=== PATIENT | male | born 1955 | race Caucasian/White ===

== ENCOUNTER 2025-03-25 07:14 | Inpatient (IN) | payer MEDICARE, BC ==
[~2025-03-25] VITALS: Ht 188 cm; Wt 106.6 kg
[2025-03-25] MEDS ORDERED: FENTANYL PF 250MCG/5ML AMPUL ONE (07:25)
[2025-03-25] MEDS ORDERED: ROCURONIUM BROMIDE 50 MG/5 ML ONE (07:26)
[2025-03-25] MEDS ORDERED: LIDOCAINE 2%-EPI 1:100,000 30 ML VIAL ONE (07:42)
[2025-03-25] MEDS ORDERED: dexaMETHasone SOD PHOSPHATE 2 ML ONE (07:42)
[2025-03-25] MEDS ORDERED: VANCOMYCIN 1 GM VIAL ONE (07:42)
[2025-03-25] MEDS ORDERED: OXYMETAZOLINE HCL NASAL SPRAY 30 ML BOTTLE NS ONE (07:54)
[2025-03-25] MEDS ORDERED: LABETALOL HCL IV 100MG VIAL ONE (09:13)
[2025-03-25] MEDS ORDERED: ONDANSETRON HCL/PF 4 MG/2 ML VIAL IVP PRN ×2 (13:30→17:30)
[2025-03-25] MEDS: HYDROMORPHONE 1 MG/1 ML DISP.SYRIN IV PRN (13:42)
[2025-03-25] MEDS: IV NS 0.9% 1,000 ML IV PRN (13:53)
[2025-03-25] MEDS ORDERED: LISI40TA13 PO (14:59)
[2025-03-25] MEDS ORDERED: LEVO125T8 PO (14:59)
[2025-03-25 16:00] VITALS: BP 124/73; TEMP 98.1; O2SAT 96
[2025-03-25] MEDS ORDERED: MAGNESIUM HYDROXIDE 30 ML UDC PO PRN (17:30)
[2025-03-25] MEDS ORDERED: MAG HYDROX/AL HYDROX/SIMETH 30 ML UDC PO PRN (17:30)
[2025-03-25 20:00] VITALS: BP 119/83; TEMP 97.7; O2SAT 96
[2025-03-25] MEDS: VANCOMYCIN 1 GM in IV D5W 250ml IV SCH (20:08)
[2025-03-25] MEDS: ACETAMINOPHEN 325 MG TABLET PO PRN (20:10)
[2025-03-26] MEDS: LISINOPRIL (20MG) 20 MG TABLET PO SCH (08:07)
[2025-03-26] MEDS: LEVOTHYROXINE SODIUM 125 MCG TABLET PO SCH (08:07)
[2025-03-26 08:53] VITALS: BP 119/69; TEMP 97.5; O2SAT 97
[2025-03-26] MEDS ORDERED: LANOLIN/MIN OIL/PETROLAT,WHT 3.5 GM TUBE OP ONE (10:16)
[2025-03-26 16:05] VITALS: BP 134/72; TEMP 97.7; O2SAT 97
== END 2025-03-26 16:26 | disposition home or self-care (01) | DRG 142 ==
LOC: DS 07:14 → MED 11:41
PROC: 0NUR07Z Supplement Maxilla with Autologous Tissue Substitute, Open Approach (ICD-10-PCS; 2025-03-25)
PROC: 0N5R0ZZ Destruction of Maxilla, Open Approach (ICD-10-PCS; 2025-03-25)
PROC: 0NUR0JZ Supplement Maxilla with Synthetic Substitute, Open Approach (ICD-10-PCS; 2025-03-25)
PROC: 09UR07Z Supplement Left Maxillary Sinus with Autologous Tissue Substitute, Open Approach (ICD-10-PCS; 2025-03-25)
PROC: 09UQ07Z Supplement Right Maxillary Sinus with Autologous Tissue Substitute, Open Approach (ICD-10-PCS; 2025-03-25)
PROC: 0NSR04Z Reposition Maxilla with Internal Fixation Device, Open Approach (ICD-10-PCS; principal; 2025-03-25 07:30)
DX: S02.40DA Maxillary fracture, left side, initial encounter for closed fracture (principal); M27.2 Inflammatory conditions of jaws; S02.40CA Maxillary fracture, right side, initial encounter for closed fracture; E03.9 Hypothyroidism, unspecified; I10 Essential (primary) hypertension; Z79.899 Other long term (current) drug therapy; X58.XXXA Exposure to other specified factors, initial encounter; Y92.9 Unspecified place or not applicable; D16.4 Benign neoplasm of bones of skull and face; J32.9 Chronic sinusitis, unspecified
CPT/HCPCS: 71045-TC; 88305-TC; 88311-TC; 88312-TC; A4217; A4223; A4338; C1713; C1781; G0378; J0330; J0461; J0690; J1100; J1171; J2704; J3010; J3373; J3490; J7030; J7060